=== PATIENT | male | born 1945 | race Two or more races ===

== ENCOUNTER 2020-07-30 10:23 | Day surgery (SDC) | payer OTHER | END 2020-07-30 15:45 | disposition home or self-care (01) | LOC: AMB-ENDOS 10:23 | PROVIDERS: ATTEND Colon & Rectal Surgery | DX: D12.0 Benign neoplasm of cecum (principal); D13.1 Benign neoplasm of stomach; Z12.11 Encounter for screening for malignant neoplasm of colon; K44.9 Diaphragmatic hernia without obstruction or gangrene; K64.2 Third degree hemorrhoids; Z20.828 Contact with and (suspected) exposure to other viral communicable diseases ==